=== PATIENT | male | born 2000 | race Caucasian/White ===

== ENCOUNTER 2022-03-06 19:10 | Emergency (ER) | payer OTHER ==
[2022-03-06 19:23] VITALS: BP 120/71; PULSE 91; RESP 18; TEMP 98.4; BMI 27.4
[2022-03-06] MEDS ORDERED: IBUPROFEN 400 MG TABLET (FP) PO ONE ×2 (19:53→20:11)
== END 2022-03-06 21:22 | disposition home or self-care (01) ==
LOC: FER 19:10
DX: J02.9 Acute pharyngitis, unspecified (principal); R05.1 Acute cough
CPT/HCPCS: 0241U-QW; 87651; 99283-25